=== PATIENT | male | born 1990 | race American Indian/Alaskan Native ===

== ENCOUNTER 2017-10-11 00:33 | Emergency (ER) | payer MEDICAID ==
[2017-10-11 00:46] VITALS: RESP 20
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
[2017-10-11 02:58] VITALS: BP 120/73; PULSE 52; TEMP 98
[2017-10-11 02:59] VITALS: O2SAT 99
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
== END 2017-10-11 02:57 | disposition home or self-care (01) ==
LOC: C.ER 00:33
DX: S90.31XA Contusion of right foot, initial encounter (principal); V04.00XA Pedestrian on foot injured in collision with heavy transport vehicle or bus in nontraffic accident, initial encounter; Y92.89 Other specified places as the place of occurrence of the external cause; Y99.0 Civilian activity done for income or pay